=== PATIENT | male | born 1990 | race Two or more races ===

== ENCOUNTER 2022-11-20 07:24 | Emergency (ER) | payer SELFPAY ==
[~2022-11-20] VITALS: Ht 160 cm; Wt 68.2 kg
[2022-11-20 07:43] VITALS: BP 135/103; PULSE 79; RESP 16; O2SAT 100
[2022-11-20] MEDS ORDERED: lactulose 20gm/30ml cup PO ONE (08:30)
[2022-11-20 08:45] VITALS: TEMP 99.1
== END 2022-11-20 08:47 ==
LOC: ER 07:26
DX: K59.00 Constipation, unspecified (principal); F17.210 Nicotine dependence, cigarettes, uncomplicated; F11.90 Opioid use, unspecified, uncomplicated; Z72.89 Other problems related to lifestyle
CPT/HCPCS: 74018; 99283